=== PATIENT | female | born 1980 | race Two or more races ===

== ENCOUNTER 2024-07-17 03:35 | Emergency (ER) | payer BC ==
[~2024-07-17] VITALS: Ht 162.6 cm; Wt 79.3 kg
--- NOTE | 2024-07-17 04:04 | ED.PDOC ---
GI ASSESSMENT HPI Comments 44-year-old female who came to ER for nausea and vomiting. Patient states 5 days ago she developed hives, which is self-medicated with Benadryl. Two days ago hives will persist, the patient went to urgent care, , and was prescribed steroids to take with the Benadryl. Yesterday, after eating Thanksgiving dinner with family, she started having episodes of nausea and vomiting 10x. Patient states no other family members present with n/v with the same food. Denies any diarrhea or abdominal pain. Chief Complaint: Nausea/Vomiting Time Seen by MD: 04:03 Reviewed Notes: Nurses Notes Allergies: Coded Allergies: NO KNOWN ALLERGIES (Unverified , 07/17/24) Home Meds Active Scripts Promethazine HCl (Promethazine Hydrochlorid) 25 Mg Sup, 25 MG AZ Q8HP PRN for 7 Days, #20 SUPP Prov:SURAJ BANDA MD 07/17/24 Ondansetron HCl (Ondansetron Hydrochloride) 8 Mg Tab, 8 MG PO Q6HP PRN for 7 Days, #28 TAB Prov:SURAJ BANDA MD 07/17/24 Information Source: Patient Mode of Arrival: Ambulatory Timing: Hours Duration: Since onset Prehospital treatment: None Quality: None Vomitus: Watery Stool: Normal Severity: Moderate Recent: Possible spoiled food, Steroids Recent Hx of: None Pain Location: None Modifying Factors: Nothing Associated sign and symptoms: Nausea, Vomiting Past Medical History PAST MEDICAL HISTORY: Denies Surgical History: Denies all surgeries 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 Family History Family History: Reviewed,noncontributory to illness Social History Smoker: Non-Smoker Alcohol: Denies ETOH Use Drugs: Denies Drug Use Lives In: Home Constitutional: denies: chills, diaphoresis, fatigue, fever, malaise, sweats, weakness, others EENTM: denies: blurred vision, double vision, ear bleeding, ear discharge, ear drainage, ear pain, ear ringing, eye pain, eye redness, hearing loss, mouth pain, mouth swelling, nasal discharge, nose bleeding, nose congestion, nose pain, photophobia, tearing, throat pain, throat swelling, voice changes, others Respiratory: denies: cough, hemoptysis, orthopnea, SOB at rest, shortness of breath, SOB with excertion, stridor, wheezing, others Cardiovascular: denies: chest pain, dizzy spells, diaphoresis, Dyspnea on exertion, edema, irregular heart beat, left arm pain, lightheadedness, palpitations, PND, syncope, others Gastrointestinal: denies: abdomen distended, abdominal pain, blood streaked bowels, constipated, diarrhea, dysphagia, difficulty swallowing, hematemesis, melena, nausea, poor appetite, poor fluid intake, rectal bleeding, rectal pain, vomiting, others Genitourinary: denies: abnormal vagina bleeding, burning, dyspareunia, dysuria, flank pain, frequency, hematuria, incontinence, pain, , vagina discharge, urgency, others Neurological: denies: dizziness, fainting, headache, left sided numbness, left sided weakness, numbness, paresthesia, pre-existing deficit, right sided numbness, right sided weakness, seizure, speech problems, tingling, tremors, weakness, others Musculoskeletal: denies: back pain, gout, joint pain, joint swelling, muscle pain, muscle stiffness, neck pain, others Integumetry: denies: bruises, change in color, change in hair/nails, dryness, laceration, lesions, lumps, rash, wounds, others Allergic/Immunocompromised: denies: Difficulty Healing, Frequent Infections, Hives, Itching, others Hematologic/Lymphatic: denies: anemia, blood clots, easy bleeding, easy bruising, swollen glands, others Endocrine: denies: excessive hunger, excessive sweating, excessive thirst, excessive urination, flushing, intolerance to cold, intolerance to heat, unexplained weight gain, unexplained weight loss, others Psychiatric: denies: anxiety, bipolar disorder, depression, hopeless, panic disorder, schizophrenia, sleepless, suicidal, others Physical Exam General Appearance: No Apparent Distress, Normal HEENT: Normal ENT Inspection, Pharynx Normal, TMs Normal Neck: Full Range of Motion, Non-Tender, Normal, Normal Inspection Respiratory: Chest Non-Tender, Lungs Clear, No Accessory Muscle Use, No Respiratory Distress, Normal Breath Sounds Cardiovascular: No Edema, No JVD, No Murmur, No Gallop, Normal Peripheral Pulses, Regular Rate/Rhythm Breast Exam: Deferred Gastrointestinal: No Organomegaly, Non Tender, No Pulsatile Mass, Normal Bowel Sounds, Soft Genitalia: Deferred Pelvic: Deferred Rectal: Deferred Extremities: No calf tenderness, Normal capillary refill, Normal inspection, Normal range of motion, Non-tender, No pedal edema Musculoskeletal : Apperance: Normal Neurologic: Alert, er medical technician II-XII nml as Tested, No Motor Deficits, Normal Affect, Normal Mood, No Sensory Deficits Cerebellar Function: Normal Reflexes: Normal Skin: Dry, Normal Color, Warm Lymphatic: No Adenopathy Was a procedure done? Was a procedure done?: No GI differential Dx Differential Diagnosis: Diverticular disease, Gastritis/PUD, Gastroenteritis, UTI, Dehydration, Electrolyte Imbalance, Food Poisoning, X-Ray, Labs, Meds, VS Vital Signs Date Time Temp Pulse Resp B/P (MAP) Pulse Ox O2 Delivery O2 Flow Rate FiO2 07/17/24 05:00 97.7 87 19 178/90 (119) 98 97.7 07/17/24 04:16 97.6 84 16 145/98 (114) 98 97.6 07/17/24 03:49 97.8 85 16 128/88 (101) 98 Lab Test 07/17/24 04:50 Range/Units White Blood Count 8.6 4.4-10.8 10^3/uL Red Blood Count 4.71 4.0-5.20 10^6/uL Hemoglobin 12.8 12.2-16.2 g/dL Hematocrit 37.6 36.0-46.0 % Mean Corpuscular Volume 79.8 L 80.0-100.0 fL Mean Corpuscular Hemoglobin 27.2 L 28.0-32.0 pg Mean Corpuscular Hemoglobin Concent 34.0 32.0-36.0 g/dL Red Cell Distribution Width 13.8 11.8-14.3 % Platelet Count 352 140-450 10^3/uL Mean Platelet Volume 7.1 6.9-10.8 fL Neutrophils (%) (Auto) 80.9 H 37.0-80.0 % Lymphocytes (%) (Auto) 14.6 10.0-50.0 % Monocytes (%) (Auto) 4.2 0.0-12.0 % Eosinophils (%) (Auto) 0.0 0.0-7.0 % Basophils (%) (Auto) 0.3 0.0-2.0 % Neutrophils # (Auto) 6.9 1.6-8.6 10 ^3/uL Lymphocytes # (Auto) 1.3 0.4-5.4 10 ^3/uL Monocytes # (Auto) 0.4 0-1.3 10 ^3/uL Eosinophils # (Auto) 0 0-0.8 10 ^3/uL Basophils # (Auto) 0 0-0.2 10 ^3/uL Nucleated Red Blood Cells 0.1 % Sodium Level 140 136-145 mmol/L Potassium Level 3.3 L 3.5-5.1 mmol/L Chloride Level 105 98-107 mmol/L Carbon Dioxide Level 23 20-31 mmol/L Anion Gap 12 5-15 Blood Urea Nitrogen 9 9-23 mg/dL Creatinine 0.69 0.550-1.02 mg/dL Glomerular Filtration Rate Calc 111 >90 mL/min BUN/Creatinine Ratio 13.0 10.0-20.0 Serum Glucose 91 74-106 mg/dL Calcium Level 10.4 8.7-10.4 mg/dL Total Bilirubin 0.5 0.2-1.0 mg/dL Aspartate Amino Transferase (AST) 10 L 13-40 U/L Alanine Aminotransferase (ALT) 16 7-40 U/L Alkaline Phosphatase 59 46-116 U/L Total Protein 7.5 5.7-8.2 g/dL Albumin 4.7 3.2-4.8 g/dL Beta HCG, Quantitative 1.8 1.5-4.2 mIU/mL Current Medications Medications (Trade) Dose Ordered Sig/Carlos Route Start Time Stop Time Status Last Admin Sodium Chloride 1,000 ml @ 1,000 mls/hr Q1H ONCE IV 07/17/24 04:30 07/17/24 05:29 DC 07/17/24 04:39 Ondansetron HCl (Zofran) 8 mg ONCE ONCE IV 07/17/24 04:30 07/17/24 04:31 DC 07/17/24 04:37 Metoclopramide HCl (Reglan Injection) 10 mg ONCE ONCE IV 07/17/24 05:30 07/17/24 05:31 DC 07/17/24 05:37 Diphenhydramine HCl (Benadryl Injection) 25 mg ONCE ONCE IV 07/17/24 05:30 07/17/24 05:31 DC 07/17/24 05:29 Time of 1ST Reevaluation: 03:58 Reevaluation 1ST: Unchanged Time of 2ND Reevaluation: 05:44 Reevaluation 2ND: Improved Patient Education/Counseling: Diagnosis, Treatment Family Education/Counseling: No Family Present Departure 1 Departure Time of Disposition: 05:44 Impression: Primary Impression: Nausea & vomiting Additional Impression: Dehydration Disposition: 01 HOME / SELF CARE / HOMELESS Condition: Stable e-Prescriptions Promethazine HCl (Promethazine Hydrochlorid) 25 Mg Sup 25 MG [place] Q8HP PRN for 7 Days, #20 SUPP Prov: SURAJ BANDA MD 07/17/24 Ondansetron HCl (Ondansetron Hydrochloride) 8 Mg Tab 8 MG PO Q6HP PRN for 7 Days, #28 TAB Prov: SURAJ BANDA MD 07/17/24 Discharged With: Self Critical Care Note Critical Care Time?: No Stability Stability form required: No Heart Score Heart Score: Heart Score Response (Comments) Value History N/A 0 EKG N/A 0 Age N/A 0 Risk Factors N/A 0 Troponin N/A 0 Total 0 I personally scribed for SURAJ BANDA MD ([email or web address]) on 07/17/24 at 04:04. Electronically submitted by [place] ([email or web address]). SURAJ BANDA MD Jul 17, 2024 04:04
[2024-07-17] MEDS: ONDANSETRON ODT 4 MG TAB PO ONE (04:32)
[2024-07-17] MEDS: ONDANSETRON HCL 4 MG/2 ML VIAL IV ONE (04:37)
[2024-07-17] MEDS: SODIUM CHLORIDE 0.9% 1,000 ML IV ONE (04:39)
[2024-07-17 05:00] VITALS: TEMP 97.7
[2024-07-17 05:10] LABS: Basophils # (auto) 0 10 ^3/uL (0-0.2); Basophils % (auto) 0.3 % (0.0-2.0); Eosinophils # (auto) 0 10 ^3/uL (0-0.8); Hematocrit 37.6 % (36.0-46.0); Hemoglobin 12.8 g/dL (12.2-16.2); Lymphocytes # (auto) 1.3 10 ^3/uL (0.4-5.4); Lymphocytes % (auto) 14.6 % (10.0-50.0); Mean Corpuscular Hemoglobin 27.2 pg (28.0-32.0); Mean Corpuscular Volume 79.8 fL (80.0-100.0); Monocytes # (auto) 0.4 10 ^3/uL (0-1.3); Monocytes % (auto) 4.2 % (0.0-12.0); Neutrophils # (auto) 6.9 10 ^3/uL (1.6-8.6); Neutrophils % (auto) 80.9 % (37.0-80.0); Nucleated Red Blood Cells % 0.1 %; Platelet Count (auto) 352 10^3/uL (140-450); Red Blood Cells 4.71 10^6/uL (4.0-5.20); Red Cell Distribution Width 13.8 % (11.8-14.3); White Blood Cell 8.6 10^3/uL (4.4-10.8)
[2024-07-17 05:25] LABS: Alanine Aminotransferase 16 U/L (7-40); Albumin 4.7 g/dL (3.2-4.8); Alkaline Phosphatase 59 U/L (46-116); Anion Gap 12 (5-15); Bilirubin, Total 0.5 mg/dL (0.2-1.0); Calcium 10.4 mg/dL (8.7-10.4); Carbon Dioxide 23 mmol/L (20-31); Chloride 105 mmol/L (98-107); Glucose 91 mg/dL (74-106); Sodium 140 mmol/L (136-145); Total Protein 7.5 g/dL (5.7-8.2)
[2024-07-17 05:27] LABS: Aspartate Aminotransferase 10 U/L (13-40); Blood Urea Nitrogen 9 mg/dL (9-23); Potassium 3.3 mmol/L (3.5-5.1)
[2024-07-17] MEDS: diphenhdrAMINE HCL 50 MG/1 ML VL IV ONE (05:29)
[2024-07-17] MEDS: METOCLOPRAMIDE HCL 5MG/ml INJ 2ml VIAL IV ONE (05:37)
[2024-07-17] MEDS ORDERED: PROM25SU34 PR (05:42)
[2024-07-17] MEDS ORDERED: ONDA-180 PO (05:42)
[2024-07-17 06:00] VITALS: BP 130/74; PULSE 89; RESP 20; O2SAT 98
== END 2024-07-17 06:33 | disposition home or self-care (01) ==
LOC: ER 03:35
DX: E86.0 Dehydration (principal); R10.2 Pelvic and perineal pain; R11.2 Nausea with vomiting, unspecified
CPT/HCPCS: 36415; 80053; 84702; 85025; 96361; 96374; 96375; 99284; J1200; J2405; J2765; J7030; Q0162